=== PATIENT | female | born 1970 | race African-American/Black ===

== ENCOUNTER → 2017-06-08 | Outpatient (CLI) | payer OTHER ==
[~2017-06-08] MED LIST: AVONEX30 MCG/0.1 IM; BACLOFEN 10MG T10 MG PO; LEVAQUIN 500 M500 M2 PO; LEXAPRO20 MG PO; LISINOPRIL10 MG PO
== END ==
LOC: RAD 15:12
DX: R05 Cough (principal); J98.6 Disorders of diaphragm

== ENCOUNTER → 2018-02-17 | Outpatient (CLI) | payer OTHER | LOC: ULTRA 15:42 | DX: N83.202 Unspecified ovarian cyst, left side (principal); N83.201 Unspecified ovarian cyst, right side ==

== ENCOUNTER → 2018-05-25 | Outpatient (CLI) | payer OTHER | LOC: ULTRA 13:57 | DX: N83.201 Unspecified ovarian cyst, right side (principal); N83.202 Unspecified ovarian cyst, left side; D25.9 Leiomyoma of uterus, unspecified; N94.6 Dysmenorrhea, unspecified; N95.1 Menopausal and female climacteric states; N97.0 Female infertility associated with anovulation ==

== ENCOUNTER 2019-03-02 15:24 | Inpatient (IN) | payer OTHER ==
[~2019-03-02] VITALS: Ht 167.6 cm; Wt 107.5 kg
[2019-03-02 18:20] VITALS: BP 136/91
[2019-03-02 18:58] LABS: HEMATOCRIT 40.6 % (37.0-47.0); MCH 27.8 pg (26.0-34.0); MCV 86.8 fL (80.0-100.0); RBC 4.68 mil/uL (4.20-5.00); RDW 14.1 % (10.5-14.5); WBC 6.6 thou/uL (4.0-11.0)
[2019-03-02] MEDS ORDERED: DESYREL150 MG PO (19:00)
[2019-03-02] MEDS ORDERED: WELLBUTRIN SR150 M1 PO (19:01)
[2019-03-02] MEDS ORDERED: BRINTELLIX10 MG PO (19:01)
[2019-03-02] MEDS ORDERED: TOPAMAX100 MG PO (19:02)
[2019-03-02] MEDS ORDERED: ZYRTEC10 M4 PO (19:02)
[2019-03-02 19:05] LABS: CALCIUM 9.5 mg/dL (8.5-10.1); POTASSIUM 3.4 mmol/L (3.5-5.1)
[2019-03-02 19:11] LABS: ALBUMIN 3.8 g/dL (3.4-5.0); TOTAL BILIRUBIN 0.4 mg/dL (<0.1-1.0); TOTAL PROTEIN 7.6 g/dL (6.4-8.2)
[2019-03-02 19:33] LABS: URINE BILIRUBIN NEGATIVE (Negative); URINE BLOOD NEGATIVE (Negative); URINE CLARITY CLEAR; URINE COLOR YELLOW; URINE GLUCOSE-RANDOM* NEGATIVE (Negative); URINE KETONES NEGATIVE (Negative); URINE LEUKOCYTES NEGATIVE (Negative); URINE NITRITE NEGATIVE (Negative); URINE PROTEIN (DIPSTICK) NEGATIVE (Negative); URINE SPECIFIC GRAVITY >= 1.030 (1.005-1.035); URINE UROBILINOGEN 0.2 E.U./dl (0.2-1.0)
--- NOTE | 2019-03-02 22:06 | NUR ---
PATIENT WAS A NEW ADMISSION TO THE UNIT APPROXIMATELY AT 1800. SHE ARRIVED BY HERSELF AND WAS A DIRECT ADMIT. PATIENT IS ALERT AND ORIENTED AND ABLE TO FULLY PARTICIPATE IN ADMISSION. DAY SHIFT NURSE WAS ABLE TO GET IV FOR PATIENT AND GET HER COMFORTABLE . NURSE TO COMPLETE ADMISSION AND INITIATE PLAN OF CARE.
[2019-03-02 23:36] VITALS: BP 131/82
--- NOTE | 2019-03-03 02:40 | NUR ---
ASSUMED PATIENT CARE AT 1845. VITAL SIGNS STABLE WITH PATIENT HAVING NO COMPLAINTS OF NAUSEA. PATIENT DID COMPLAIN OF LOWER LEG PAIN WHICH WAS TREATED EFFECTIVELY THROUGH NON PHARMACOLOGICAL INTERVENTIONS. FULLY ORIENTED, PATIENT WAS ABLE TO CALL FOR NEED APPROPRIATELY AND PARTICIPATE IN CARE. UP MULTIPLE TIMES WITH ASSISTANCE TO BEDSIDE COMMODE INCIDENT FREE, PATIENT IS CONSIDERED A HIGH FALL RISK. CONTINUE PLAN OF CARE.
[2019-03-03 03:20] VITALS: BP 125/75
[2019-03-03 07:32] VITALS: BP 147/54
[2019-03-03 09:57] LABS: TSH 2.561 uIU/mL (0.358-3.740)
[2019-03-03 15:47] VITALS: BP 155/88
--- NOTE | 2019-03-03 18:15 | NUR ---
Assumed patient care at 0700. a/o x4. very pleasant. BLE weakness. assisted to bathroom or bsc. denies pain. slowly towards poc goals.
[2019-03-03 19:26] VITALS: BP 142/90
--- NOTE | 2019-03-04 02:03 | NUR ---
PT LYING IN BED. VOIDING PER BEDSIDE COMMODE. DENIES NEED FOR PAIN MEDICATION. RESTING COMFORTABLY. NO NEEDS VOICED. CALL LIGHT WITHIN REACH. WILL CONTINUE TO PROVIDE FREQUENT OBSERVATION.
[2019-03-04 04:15] VITALS: BP 125/66
[2019-03-04 08:05] VITALS: BP 140/83
[2019-03-04] MEDS ORDERED: BUPROPION XL300 MG PO (08:56)
[2019-03-04 15:13] VITALS: BP 126/78
[2019-03-04 19:54] VITALS: BP 149/81
--- NOTE | 2019-03-05 05:17 | NUR ---
PATIENT ALERT AND ORIENTED X4. UP TO BATHROOM WITH ASSIST. DENIES PAIN. ACCUCHECK WAS 115, RECIEVED 4 UNITS OF LISPRO INSULIN. SLEPT MOST OF NIGHT.
[2019-03-05 07:28] VITALS: BP 153/92
--- NOTE | 2019-03-05 16:06 | NUR ---
PT ADMITTED RLEATED TO M/S EXCACERBATION. CM REVIEWED CHART AND SPOKE WITH CARE TEAM. CM MET WITH PT AND SPOUSE AT BEDSIDE THIS DAY. PT IS A&O X4. CM ROLE INTRODUCED. PT INDICATED THAT SHE LIVES IN A HOUSE WITH HER SPOUSE WITH NO STEPS TO ENTER THROUGH THE GARAGE AND 14 STEPS THAT SHE NAVIGATES INSIDE. PT INDICATED SHE HAD USED A CANE TO ASSIST WITH MOBILITY IN THE PAST. PT INDICATED THAT SHE HAD DONE OP THEREAPY HERE AT [facility] IN THE PAST BUT NO HH OR POST ACUTE CARE STAYS. 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 PT INDICATED SHE PLANS TO RETURN HOME ONCE MEDICALLY STABLE. CM TO FOLLOW INDICATED WITH DC PLANNING.
[2019-03-05 20:00] VITALS: BP 146/77
[2019-03-06 07:10] VITALS: BP 153/93
--- NOTE | 2019-03-06 08:11 | NUR ---
Assumed pt care at 1900, A/OX4. Up ad leigh in room with RW,cleared by PT and should be up with SBA if going down the hallways. Denies pain on assessment. Pt had an outpatient kidney US requested staff to inform them she was inpatient and did so @ 2214. Encouraged to vice needs as needed.
[2019-03-06 15:00] VITALS: BP 153/83
[2019-03-06 19:10] VITALS: BP 142/83
--- NOTE | 2019-03-06 19:29 | NUR ---
ASSUMED CARE OF PATIENT AT 0715, PATIENT ALERT AND ORIENTED X 4. PATIENT UP AD ITZ IN HER ROOM, PT WORKED WITH THE PATIENT TODAY AND AMBULATED IN HALLWAYS. PATIENT HAS LEFT AC IV IN PLACE, RECEIVED SOLU-MEDROL IV THIS AFTERNOON. BLOOD SUGAR MONITORING ORDERED, DUE TO IV STEROIDS, BS 170 AT 1727, PATIENT REFUSED INSULIN DOSE. NO C/O PAIN THIS SHIFT. US OF KIDNEYS DONE THIS AM. WILL CONTINUE TO MONITOR. POSSIBLE D/C TOMORROW.
--- NOTE | 2019-03-07 04:42 | NUR ---
Assumed pt care at 1900. A/OX4,very pleasant. Denies pain on assessment. Up with a RW to the bathroom without any problems, encouraged to call for assistance as needed. Resting quietly at this time with no distress noted will continue pt.
[2019-03-07 08:14] VITALS: BP 169/109
[2019-03-07] MEDS ORDERED: GABAPENTIN 100100 MG PO (10:52)
[2019-03-07] MEDS ORDERED: NEURONTIN 300300 M1 PO (10:53)
[2019-03-07] MEDS ORDERED: RAYOS5 MG PO (10:54)
[2019-03-07 15:30] VITALS: BP 169/109
--- NOTE | 2019-03-07 15:54 | NUR ---
ASSUMED CARE OF PATIENT AT 0715, PATIENT ALERT AND ORIENTED X 4. PATIENT UP AD ITZ WITH WALKER IN ROOM, SBA IN HALLWAYS. PATIENT C/O PAIN WITH ABDOMEN, NAPROXYN GIVEN WITH GOOD RELIEF. PATIENT HAS LEFT AC IV IN PLACE. PATIENT RECEIVED SOLU MEDROL IV PRIOR TO DISCHARGE. LEFT AC IV REMOVED PRIOR TO DISCHARGE. THIS RN WENT OVER ALL DISCHARGE PAPERWORK WITH THE PATIENT AND NO SCRIPTS GIVEN PER DR BASS. AT BEDSIDE TO TRANSPORT THE PATIENT HOME.
== END 2019-03-07 16:55 | disposition home or self-care (01) | DRG 60 ==
LOC: TBA 15:24 → 4S 18:24 → 3W 18:24 → 4S 03-04 19:00 → ENTRNSPT 03-07 15:56 → 4S 03-07 16:55
PROVIDERS: Hospitalist; ADMIT Family Medicine
DX: G35 Multiple sclerosis (principal); I10 Essential (primary) hypertension; F32.9 Major depressive disorder, single episode, unspecified; R53.81 Other malaise; Z88.2 Allergy status to sulfonamides; Z79.899 Other long term (current) drug therapy; Z87.891 Personal history of nicotine dependence
CPT/HCPCS: 10102; 10779

== ENCOUNTER → 2019-05-02 | Outpatient (CLI) | payer OTHER ==
[~2019-05-02] VITALS: Ht 167.6 cm; Wt 99.8 kg
[~2019-05-02] MED LIST changes: +AMITIZA 24 MCG24 MCG PO; +BRINTELLIX10 MG PO; +BUPROPION XL300 MG PO; +DESYREL150 MG PO; +DETROL LA4 MG PO; +GABAPENTIN 100100 MG PO; +NEURONTIN 300300 M1 PO; +PRILOSEC OTC20 MG PO; +RAYOS5 MG PO; +TOPAMAX100 MG PO; +VITAMIN D400 UNIT PO; +WELLBUTRIN SR150 M1 PO; +ZYRTEC10 M4 PO
--- NOTE | 2019-05-03 16:06 | PATH ---
[facility] [place] [address] PATHOLOGY RPT PROCEDURE Name: MOHIT CARTER Room #: REG SUE Rachelle#: [id number] Admission: 05/02/19 Date of : 68 Discharge: Report #: [id number] Path Case #: [id number] LCA Accession Number: [id number] . 01 Material submitted: . PART A: duodenum - BIOPSY OF DUODENUM R/O SPRUE PART B: stomach - BIOPSY OF GASTRITIS R/O H. PYLORI PART C: colon - POLYP AT SIGMOID. Modifiers: sigmoid . 01 Clinical history: . Nausea, constipation . 02 Diagnosis: A. Small bowel mucosa, duodenum R/O sprue, endoscopic biopsy: - No diagnostic abnormalities present. - Negative for villous blunting or increase in intraepithelial lymphocytes. . B. Gastric mucosa, gastritis R/O H. pylori, endoscopic biopsy: - Mild reactive gastropathy. - Negative for intestinal metaplasia or atrophy. - Negative for Helicobacter pylori (properly controlled immunohistochemical stain performed). . C. Polyp, at sigmoid, endoscopic biopsy: - Hyperplastic polyp. - Negative for dysplasia or malignancy. (IUV:arnoldo; 05/03/2019) QMS 05/03/2019 1445 Local . 02 Electronically signed: . Brook Oreilly MD, Pathologist NPI- [id number] . 01 Gross description: . A. Received in formalin labeled "Mohit Carter, BX duodenal, rule out sprue," are 5 segments of prince soft tissue measuring 1.1 x 0.6 x 0.3 cm in aggregate dimensions and ranging from 0.2 to 0.6 cm in maximum dimension. The specimen is submitted entirely in cassette A1. . B. Received in formalin labeled "Mohit Carter, BX of gastritis, rule out H. pylori," are 4 segments of prince soft tissue measuring 0.9 x 0.8 x 0.3 cm in aggregate dimensions and ranging from 0.3 to 0.5 cm in maximum dimension. The specimen is submitted entirely in cassette B1. . C. Received in formalin labeled "Mohit Carter, polyp at sigmoid," is a single segment of prince soft tissue measuring 0.3 cm in maximum dimension. [facility] [address] [place] [address] PATHOLOGY RPT PROCEDURE Name: MOHIT CARTER Room #: REG CLI Rachelle#: [id number] Admission: 05/02/19 Date of : 68 Discharge: Report #: [id number] Path Case #: [id number] The specimen is entirely submitted in cassette C1. (TSD; 05/02/2019) TOB/TOB 05/02/2019 1731 Local . 02 Pathologist provided ICD-10: K31.9, K63.5, R11.0, K59.00 . 02 CPT . 528982, 496967, 978801, L15004 Specimen Comment: A courtesy copy of this report has been sent to [phone] Specimen Comment: [id number] Specimen Comment: Report sent to / DR BASS Performed at: 01 [facility] [address], [place] [id number] MD Tristian Shrestha MD Phone: [phone] Performed at: [address] [facility] [id number] MD Brook Oreilly MD Phone: [phone]
--- NOTE | 2019-05-09 08:07 | P ---
[facility] [place] [address] [place] [address] PROCEDURE REPORT Name: MOHIT MOURA Room #: [facility] [id number] Admission: 05/02/19 Attend Phys: Miles Wolf Discharge: Date of : 68 Report #: [id number] THIS REPORT FOR: //name// CC: Miles Wilson MD DATE OF SERVICE: 05/02/2019 PROCEDURE PERFORMED: Colonoscopy with biopsies. HISTORY OF PRESENT ILLNESS: The patient is a 48-year-old female with a history of nausea for the last approximately 6 weeks. Upper endoscopy was just performed, which was normal. Biopsies were obtained to rule out H. pylori and celiac sprue. The patient also with a history of chronic constipation, intermittent right upper quadrant abdominal pain that resolves after a bowel movement. She is currently taking Amitiza 24 mcg b.i.d., recently started the higher dose; in the past, was on Linzess at a lower dose. MiraLax was helpful in the past. She denies any blood in her stools. No family history of colon cancer. DESCRIPTION OF PROCEDURE: The risks and benefits of the procedure were explained to the patient, those risks including but not limited to bleeding, perforation, and the risk of sedation. She understood these risks and gave informed consent. Sedation was given using propofol per anesthesia. Next, a digital rectal exam was initially performed, which was normal. Next, using a standard Olympus colonoscope, the scope was placed in the patient's anus and advanced under direct vision to the cecum. The overall prep was good. The cecum and ileocecal valve were normal in appearance. Ascending, transverse and descending colon were normal. A single 3 mm sessile polyp was noted in the sigmoid colon. This was removed with cold forceps, otherwise normal. The rectal mucosa was normal. No abnormalities were noted on retroflexion. The scope was then withdrawn and the procedure terminated. The patient tolerated the procedure well. IMPRESSION: 1. Small sigmoid colon polyp. 2. Otherwise, normal colonoscopy. RECOMMENDATIONS: 1. Await biopsy results. 2. If polyp is hyperplastic, repeat in 10 years; if adenomatous polyp, repeat in 5 years. 3. We discussed potentially trying a higher dose of Linzess and continuing MiraLax. [address] [address] PROCEDURE REPORT Name: MOHIT MOURA Pedro Room #: REG SUE Bush#: [id number] Admission: 05/02/19 Attend Phys: Miles Wolf Discharge: Date of : 68 Report #: [id number] Thank you for allowing me to participate in her care. <ELECTRONICALLY SIGNED> By: Miles Garcia MD 05/09/19 0807 1118 0000 Miles Garcia MD /nt
--- NOTE | 2019-05-09 08:07 | P ---
[facility] [place] [address] [place] [address] PROCEDURE REPORT Name: MOHIT MOURA Room #: REG SUE Rachelle#: [id number] Admission: 05/02/19 Attend Phys: Miles Wolf Discharge: Date of : 68 Report #: [id number] THIS REPORT FOR: //name// CC: Miles Wilson MD DATE OF SERVICE: 05/02/2019 PROCEDURE PERFORMED: Upper endoscopy with biopsies. HISTORY OF PRESENT ILLNESS: The patient is a 48-year-old female with approximately 2-month history of nausea. Denies any emesis. No previous history of endoscopy. Denies any dysphagia or odynophagia. She does report some mild benefit being on PPI therapy, also has been using Zofran b.i.d. with benefit. She also complains of right upper quadrant abdominal pain as well as chronic constipation. This right upper quadrant pain resolved with a bowel movement. She has recently been on Amitiza 8 mcg bumped up to 24 mcg b.i.d. recently without much improvement. Plan is for EGD and colonoscopy today. DESCRIPTION OF PROCEDURE: The risks and benefits of the procedure were explained to the patient. Those risks including but not limited to bleeding, perforation and the risk of sedation. She understood these risks and gave informed consent. Sedation was given using propofol per Anesthesia. Next, using a standard upper endoscope, the scope was placed in the patient's mouth and advanced under direct vision through the esophagus, stomach and into the second portion of the duodenum. The esophagus was normal throughout. The GE junction was normal. No evidence of esophagitis. Overall, the gastric mucosa was normal. Because of her history of nausea, biopsies were obtained to rule out H. pylori. The pylorus was normal and patent. The duodenal bulb, first and second portion were all normal. Biopsies were also obtained to rule out the possibility of celiac sprue. The scope was then withdrawn and the procedure terminated. The patient tolerated the procedure well. IMPRESSION: Normal upper endoscopy. RECOMMENDATIONS: 1. Await biopsy results. 2. Continue PPI therapy and Zofran p.r.n. 3. We will proceed with colonoscopy next today. [facility] [address] [place] [address] PROCEDURE REPORT Name: MOHIT MOURA Room #: REG [facility].#: [id number] Admission: 05/02/19 Attend Phys: Miles Wolf Discharge: Date of : 68 Report #: [id number] Thank you for allowing me to participate in her care. <ELECTRONICALLY SIGNED> By: Miles Garcia MD 05/09/19 0807 1051 [id number] Miles Garcia MD /nt
== END | disposition home or self-care (01) ==
LOC: GI 08:34
DX: K63.5 Polyp of colon (principal); K31.9 Disease of stomach and duodenum, unspecified; K59.00 Constipation, unspecified; R10.11 Right upper quadrant pain; I10 Essential (primary) hypertension; K21.9 Gastro-esophageal reflux disease without esophagitis; F32.9 Major depressive disorder, single episode, unspecified; F41.9 Anxiety disorder, unspecified; G35 Multiple sclerosis; Z98.890 Other specified postprocedural states; Z87.891 Personal history of nicotine dependence; Z79.899 Other long term (current) drug therapy
CPT/HCPCS: 62110; 62900

== ENCOUNTER → 2019-10-31 | Outpatient (CLI) | payer OTHER | LOC: LAB 10:14 | PROVIDERS: ATTEND Urology | DX: N30.20 Other chronic cystitis without hematuria (principal) ==

== ENCOUNTER → 2020-04-14 | Outpatient (CLI) | payer OTHER | LOC: MRI 09:31 | PROVIDERS: ATTEND Nuclear Medicine Nuclear Cardiology | DX: G35 Multiple sclerosis (principal); M48.02 Spinal stenosis, cervical region; M25.78 Osteophyte, vertebrae ==

== ENCOUNTER → 2020-07-09 | Outpatient (CLI) | payer OTHER | LOC: ULTRA 12:53 | PROVIDERS: ATTEND Obstetrics & Gynecology | DX: D25.1 Intramural leiomyoma of uterus (principal); N28.1 Cyst of kidney, acquired; N93.8 Other specified abnormal uterine and vaginal bleeding ==

== ENCOUNTER → 2021-02-13 | Outpatient (CLI) | payer OTHER | LOC: RAD 15:27 | PROVIDERS: ATTEND Family Medicine | DX: Z12.31 Encounter for screening mammogram for malignant neoplasm of breast (principal) ==

== ENCOUNTER → 2021-02-25 | Outpatient (CLI) | payer OTHER ==
[~2021-02-25] MED LIST changes: +CEFDINIR300 MG PO; +CRANBERRY PO; +GEMTESA75 MG PO; +IBU600 MG PO; +MIRALAX119 GM PO; +NEURONTIN300 MG PO; +NITROFURANTOIN50 M2 PO; +TIZANIDINE HCL4 M2 PO; +VITAMIN B-12500 MCG PO
== END ==
LOC: BC 09:06
PROVIDERS: ATTEND Family Medicine
DX: R92.1 Mammographic calcification found on diagnostic imaging of breast (principal)

== ENCOUNTER 2021-03-02 10:49 | Inpatient (IN) | payer OTHER ==
[~2021-03-02] VITALS: Ht 167.6 cm; Wt 101.3 kg
--- NOTE | ~2021-03-02 | HC ---
[facility] [place] [address] [address] CONSULTATION Name: MOHIT MOURA Room #: 460-P ADM IN M.R.#: [id number] Admission: 03/02/21 Attend Phys: Aldair Wilson MD Discharge: Date of : 68 Report #: [id number] THIS REPORT FOR: cc: Aldair Wilson MD, Neal A. MD Khosla,Geoffrey Barrera MD ~ DATE OF SERVICE: 03/03/2021 HISTORY OF PRESENT ILLNESS: A 50-year-old female patient who was seen by me for MS. This patient has significant records in the computer, which dates back to 2011 when she was seen by Dr. Myles, who was a neurologist here. She was having some tingling and numbness sensation and was found to have a lesion both in the brain and the spine. The spinal tap confirmed that she had 4 oligoclonal band, pretty much confirming the diagnosis of MS. Presently, she sees Dr. Quintanilla, a subspecialist in MS at . She is not on her insurance. She pays for her visit, but she cannot pay for the hospitalization. She sometimes gets admitted here and they follow the instructions from Dr. Quintanilla. It looks like that what it was done in 2019. She started having ophthalmology symptoms. She never had ophthalmology symptoms before. On examination, it looks pretty typical internuclear ophthalmoplegia. She also developed ataxia and what looks like inability to ambulate. As I understand from her, she was started on 1000 mg of steroid and she has received 2 dosages of that and she feels significantly better. REVIEW OF SYSTEMS: Positive for some hypertension. She gets vitamin D checked pretty frequently and as I understand the last time Dr. Quintanilla checked it and it was unremarkable. There is some history of depression and tonsillectomy, but rest of the history is mostly unremarkable. PAST MEDICAL HISTORY: Positive for MS. SOCIAL HISTORY: She drinks alcohol occasionally. She says she works in [employer]. PHYSICAL EXAMINATION: NEUROLOGIC: She is alert, responsive, able to follow simple and complex commands. Her mentation appears intact. Her speech looks intact. Cranial nerve examination is mostly positive for what looks like internuclear ophthalmoplegia. She is to some extent weak in all 4 extremities. It is more so in the lower extremities than upper extremities. It is more so on the left lower extremity than the right lower extremity, but she says she has improved after steroids. She is also ataxic there. On the right side, she did not have a position signs. On the left side, she did. Reflexes does appear to be somewhat hyper, but I cannot tell about the plantar. I could not look at the fundus. [facility] [address] [place] [address] CONSULTATION Name: MOHIT MOURA Room #: 460-P ADM IN M.R.#: [id number] Admission: 03/02/21 Attend Phys: Aldair Wilson MD Discharge: Date of : 68 Report #: [id number] CARDIORESPIRATORY: Examination appear unremarkable. LABORATORY DATA: Last white count was 6.7. UA was normal. She did not have any recent imaging study. IMPRESSION AND PLAN: Finding is consistent with relapse of multiple sclerosis, probably in the posterior fossa and the brainstem, but it looks like a pretty aggressive multiple sclerosis. She is on some study protocol at [facility]. She does not know what is restricted and what is not restricted. She already got 2 dosages of Solu-Medrol and I think since it has already started she can finish the course, which can last somewhere about 5-7 days depending upon her response. I told her that we should do an MRI of the brain, cervical and thoracic spine with and without contrast. All 3 of them can be done with 1 dosage of contrast. She will probably need some rehabilitation. She wants me to check with Dr. Quintanilla to make sure that it is okay to do an MRI and it is not violation of the study protocol she is on, because she is getting medication from them at the moment and is not a double-blind study anymore. I told her that I will try to contact her in the morning, but if she does not reply, then we should go ahead and do the imaging studies. She appeared to be okay and I will try to contact Dr. Quintanilla in the morning and then I will also give a call to Dr. Wilson. Thank you very much for this referral and if you have any questions, please feel free to contact me. By: [phone] 01 Geoffrey Evans MD /nt
--- NOTE | ~2021-03-02 | HC ---
[facility] [place] [address] [place] [address] CONSULTATION Name: MOHIT MOURA Room #: 460-P ADM IN M.R.#: [id number] Admission: 03/02/21 Attend Phys: Aldair Wilson MD Discharge: Date of : 68 Report #: [id number] THIS REPORT FOR: cc: Aldair Wislon MD, Neal A. MD Smithson, David G. MD ~ DATE OF SERVICE: 03/04/2021 HISTORY OF PRESENT ILLNESS: The patient is a 50-year-old female admitted with multiple sclerosis flare. She was noted to have strabismus left eye with double vision and significant increased weakness. She was seen by neurology and noted to have internuclear ophthalmoplegia with ataxia, problems ambulating and was diagnosed with a relapse of her multiple sclerosis. She is on IV steroids. We are seeing her in rehabilitation medicine consultation. PAST MEDICAL HISTORY: Includes the MS. She also has a history of hypertension, depression, controlled GERD. MEDICATIONS: Please see the full medication listing. HABITS: Former tobacco smoker, one-half pack per day for 20 years, quit greater than a year ago. Alcohol only on special occasions. ALLERGIES: SULFA. SOCIAL HISTORY: She lives with her in a house, no stairs. She has a 4-wheeled walker, cane, wheelchair. 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 Her works. They have 5 children, 4 are out of town, 1 is in town. There is a mother that could assist and friends as well. REVIEW OF SYSTEMS: Obvious issues with her vision and complaints of weakness. No complaints of chest pain, shortness of breath or abdominal discomfort. PHYSICAL EXAMINATION: GENERAL: A 50-year-old pleasant, overweight female in no obvious distress. She has the eye patch on her left eye. VITAL SIGNS: Temperature 97.4, pulse 58, respirations 16, blood pressure 134/82. HEENT: Upon removing the eye patch, she has obvious marked abduction of the left eye. With EOMs, she is able to adduct that left eye while she abducts the right eye and does not have double vision when looking to the right with some consensual gaze. She does have double vision; however, at midline and especially in the left visual field. Facies appeared symmetric. NEUROLOGIC: She is alert, appears to be a reasonable historian. Follows [facility] [address] [place] [address] CONSULTATION Name: MOHIT MOURA Room #: 460-P [facility] IN M.R.#: [id number] Admission: 03/02/21 Attend Phys: Aldair Wilson MD Discharge: Date of : 68 Report #: [id number] commands. EXTREMITIES: Functional range of motion of both upper extremities, strength is grade 3+/5. She does reasonably well with prkeyu-fl-aojz with some difficulty with the visual aspect of it. Rapid alternating movements were reasonably good. In her lower extremities, she has definite increased tone with a grade III, DTRs at the knees. There was no clonus at the ankles. Strength is probably a grade 3- to 3/5 proximally, more of a grade 3+ distally. ASSESSMENT: A 50-year-old female with the following problem list: 1. Multiple sclerosis flare. 2. Double vision with internuclear ophthalmoplegia. 3. Significant functional mobility and ADL deficits. 4. Prior medical history as noted above. PLAN: Agree with PT and OT orders as written. We will need to see how she does in her therapy evaluations. We will assess regarding her as a potential acute in-hospital inpatient rehabilitation candidate. We will be glad to follow along with you regarding her rehab therapy needs. By: 1304 Evgeny Bae MD /nt
[~2021-03-02 10:49] MED LIST changes: -CEFDINIR300 MG PO; -CRANBERRY PO; -GEMTESA75 MG PO; -IBU600 MG PO; -MIRALAX119 GM PO; -NEURONTIN300 MG PO; -NITROFURANTOIN50 M2 PO; -TIZANIDINE HCL4 M2 PO; -VITAMIN B-12500 MCG PO
[2021-03-02 10:56] VITALS: BP 161/107
[2021-03-02 12:12] LABS: ABSOLUTE NEUTROPHILS 5.4 thou/uL (1.4-8.2); BASOPHILS 0.5 % (0.0-2.0); EOSINOPHILS 0.8 % (0.0-3.0); HEMATOCRIT 41.7 % (37.0-47.0); HEMOGLOBIN 13.4 gm/dL (12.0-15.0); LYMPHOCYTES 13.1 % (24.0-44.0); MCH 27.7 pg (26.0-34.0); MCHC 32.1 g/dL (28.0-37.0); MCV 86.4 fL (80.0-100.0); PLATELET COUNT 275 thou/uL (150-400); POLYS 80.6 % (36.0-66.0); RBC 4.83 mil/uL (4.20-5.00); RDW 14.3 % (10.5-14.5); WBC 6.7 thou/uL (4.0-11.0)
[2021-03-02 12:12] LABS: URINE BILIRUBIN NEGATIVE (Negative); URINE BLOOD NEGATIVE (Negative); URINE CLARITY CLEAR; URINE COLOR YELLOW; URINE GLUCOSE-RANDOM* NEGATIVE (Negative); URINE KETONES 1+ (Negative); URINE LEUKOCYTES-REFLEX TRACE (Negative); URINE NITRITE-REFLEX NEGATIVE (Negative); URINE PROTEIN (DIPSTICK) NEGATIVE (Negative); URINE UROBILINOGEN 0.2 E.U./dl (0.2-1.0)
[2021-03-02 12:19] LABS: ANION GAP 12 mmol/L (7-16); BUN 11 mg/dL (7-18); CALCIUM 9.4 mg/dL (8.5-10.1); CHLORIDE 106 mmol/L (98-107); CO2 26 mmol/L (21-32); CREATININE 0.9 mg/dL (0.6-1.0); GLUCOSE 88 mg/dL (74-106); SODIUM 144 mmol/L (136-145)
[2021-03-02 12:32] LABS: ALBUMIN 3.5 g/dL (3.4-5.0); SGOT 14 U/L (15-37); SGPT 20 U/L (30-65); TOTAL BILIRUBIN 0.8 mg/dL (0.2-1.0); TOTAL PROTEIN 7.1 g/dL (6.4-8.2)
--- NOTE | 2021-03-02 13:37 | EKG ---
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
[2021-03-02 15:20] VITALS: BP 159/92
--- NOTE | 2021-03-02 15:40 | NUR ---
50 year old female arrived to the ED on 03-02-21 by spouse and private vehicle with what patient describes as an exacerbation of her MS. Patient reports strabismus of the left eye, nausea and increased weakness. Patient is a current patient of Dr. 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 Currently living at home with spouse Julius Carter at [phone]. Per ED assessment the patient is A&O x4 and can make all needs known. As Medical assessment continues CM will await therapy orders to be placed to assist for discharge planning.
[2021-03-02 19:32] VITALS: BP 159/92
[2021-03-02 20:31] VITALS: BP 129/86
[2021-03-02 21:00] VITALS: BP 144/93
[2021-03-02] MEDS ORDERED: TIZANIDINE HCL4 M2 PO (21:37)
[2021-03-02] MEDS ORDERED: GEMTESA75 MG PO (21:38)
[2021-03-02] MEDS ORDERED: NITROFURANTOIN50 M2 PO (21:40)
[2021-03-02] MEDS ORDERED: NEURONTIN300 MG PO (21:41)
[2021-03-02] MEDS ORDERED: MIRALAX119 GM PO (21:42)
[2021-03-02] MEDS ORDERED: CRANBERRY PO (21:44)
[2021-03-02] MEDS ORDERED: IBU600 MG PO (23:30)
--- NOTE | 2021-03-02 23:43 | NUR ---
Ptn admitted from ED at 2200 with MS exacerbation. A/OX4,pleasant.VSS. Up with SBA,RW/GB. Pt reports several falls recently at home,fall education reinforced,agrees to call for help as needed,precautions initiated. Pt does self straight cath herself at home;brought her own supplies from home. notified about home meds;HS meds restarted will look into others in am. Reports numbness/tingling to BLE chronic but on BUE new but not right now. Resting w/o any distress right now,will continue to monitor pt.
[2021-03-03 07:40] VITALS: BP 141/87
[2021-03-03 12:30] VITALS: BP 145/82
--- NOTE | 2021-03-03 12:59 | NUR ---
ASSUMED PT CARE THIS AM. PT A&OX4, ABLE TO MAKE NEEDS KNOWN. PATIENT REPORTING NAUSEA AND A HEADACHE, MEDICATED PER EMAR WITH DECREASE IN PAIN AND NAUSEA NOTED. PATIENT REPORTS CHRONIC TINGLING IN BILATERAL FEET, AND NEW TINGLING TO BILATERAL HANDS. PATIENT SELF CATHETERIZES HERSELF. PATIENT IS ON ROOM AIR. IV REMAINS PATENT, SALINE LOCKED. MEDICATIONS TAKEN WITHOUT ISSUE. FALL PRECAUTIONS ARE IN PLACE, CLAL LIGHT WITHIN REACH. PATIENT AMBULATES WITH STANDBY ASSIST AND HER WALKER.
[2021-03-03 15:00] VITALS: BP 125/82
--- NOTE | 2021-03-03 15:07 | NUR ---
PT ADMITTED RELATED TO MS EXARCABATION. CM REVIEWED CHART AND SPOKE WITH CARE TEAM. CM MET WITH PT AT [facility] THIS DAY. PT APPEARED TO BE A&O X4. CM ROLE INTRODUCED. PT INDICATED SHE LIVES IN A HOUSE WITH HER SPOUSE WITH NO STEPS TO ENTER AND NO STEPS INSIDE. PT INDICATED SHE HAS A 4WW, WC, CANES, SB, GRAB BARS FOR HOME USE. 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 PT INDICATED SHE HAD DONE OP PT HERE AT [facility] IN THE PAST. PT INDICATED SHE PLANS TO RETURN HOME ONCE MEDICALLY STABLE. CM FOLLOWING REGARDING DC PLANNING.
[2021-03-03 19:58] VITALS: BP 153/81
--- NOTE | 2021-03-04 04:01 | NUR ---
Assumed pt care at 1900. A/OX4,pleasant. VSS. Up with SBA/RW to BR. BS hypoactive requesting for bowel aids,will notify in am. Self straight caths self. C/o a headache r/t left eye strabismus,medicated with Tylenol with relief reported. Resting quietly w/o distress noted. Fall precautions in place,will continue to monitor pt.
[2021-03-04 07:00] VITALS: BP 134/82
--- NOTE | 2021-03-04 14:24 | NUR ---
ASSUMED PT CARE THIS AM. PT A&OX4, ABLE TO MAKE NEEDS KNOWN. PATIENT REPORTING NO PAIN. PATIENT STILL HAVING TINGLING TO BILATERAL FINGERS. EYE PATCH TO LEFT EYE. PATIENT ON ROOM AIR. IV REMAINS PATENT, MEDICATION INFUSED WITHOUT ISSUE. PATIENT IS A STANDBY ASSIST WITH A WALKER, REMAINS CONTINENT. FALL PRECAUTIONS ARE IN PLACE, CALL LIGHT WITHIN REACH.
--- NOTE | 2021-03-04 15:24 | NUR ---
PT AND OT ORDERED AND ARE TO EVAL. 5N AND NEURO CONSULTED. CM FOLLOWING REGARDING DC PLANNING.
[2021-03-04 16:30] VITALS: BP 141/82
[2021-03-04 19:07] LABS: URINE BILIRUBIN NEGATIVE (Negative); URINE BLOOD NEGATIVE (Negative); URINE CLARITY CLOUDY; URINE COLOR YELLOW; URINE GLUCOSE-RANDOM* NEGATIVE (Negative); URINE KETONES NEGATIVE (Negative); URINE LEUKOCYTES 1+ (Negative); URINE NITRITE NEGATIVE (Negative); URINE PROTEIN (DIPSTICK) NEGATIVE (Negative); URINE SPECIFIC GRAVITY 1.025 (1.005-1.035); URINE UROBILINOGEN 0.2 E.U./dl (0.2-1.0)
[2021-03-04 19:16] LABS: CASTS None Seen /LPF (None Seen); SQUAMOUS 0-3 Few /LPF (0-3); URINE RBC 1-2 Rare /HPF (NONE SEEN); URINE WBC 6-15 Few /HPF (NONE SEEN)
[2021-03-04 19:17] LABS: CRYSTALS None Seen /LPF (None Seen)
[2021-03-04 19:32] VITALS: BP 139/89
--- NOTE | 2021-03-05 05:38 | NUR ---
PATIENT AOX4 MAKES NEEDS KNOWN. PATIENT AMBULATES WITH A WALKER WITH STEADY GAITS. PATIENT IS ABLE TO STRAIGHT CATH HERSELF. FALL PRECAUTION IN PLACE. PATIENT IN BED ASLEEP AT THIS TIME BREATHING REGULAR AND UNLABOURED.
[2021-03-05 07:26] VITALS: BP 154/93
--- NOTE | 2021-03-05 13:49 | NUR ---
[facility] INDICATED THAT THEY CAN ACCPET. CM NOTIFIED DR. BASS. CM MET WITH PT AT BEDSIDE THIS DAY. PT INDICATED THAT SHE WANTED TO GO TO [facility] ONCE MEDICALLY STABLE. PT TO HAVE 4 MRIS. PT HAVING TWO TODAY AND TWO TOMORROW DUE TO MRI SHCEDULING. IT IS ANTICIPATED THAT PT WILL BE MEDICALLY STABLE TO DC TO [facility] TOMORROW. CM FOLLOWING REGARDING DC PLANNING.
[2021-03-05 16:20] VITALS: BP 152/94
[2021-03-05 20:01] VITALS: BP 143/83
[2021-03-06] MEDS ORDERED: CEFDINIR300 MG PO (07:31)
[2021-03-06 07:40] VITALS: BP 158/98
--- NOTE | 2021-03-06 08:16 | NUR ---
Assumed pt care at 1900. A/OX4,VSS. Up with SBA/RW. C/o abd pain/cramping medicated per EMAR with relief reported,still has had no BM,wanted to hold off ordering her something else and wait for dc. Resting w/o any distress noted,looking forward to dc this afternoon.
[2021-03-06 08:50] VITALS: BP 158/98
[2021-03-06 09:15] LABS: HEMATOCRIT 44.1 % (37.0-47.0); HEMOGLOBIN 14.4 gm/dL (12.0-15.0); MCH 28.2 pg (26.0-34.0); MCHC 32.7 g/dL (28.0-37.0); MCV 86.3 fL (80.0-100.0); RBC 5.11 mil/uL (4.20-5.00); RDW 14.4 % (10.5-14.5); WBC 8.6 thou/uL (4.0-11.0)
[2021-03-06 09:28] LABS: ALBUMIN 3.5 g/dL (3.4-5.0); CALCIUM 9.1 mg/dL (8.5-10.1); CREATININE 0.9 mg/dL (0.6-1.0); POTASSIUM 3.8 mmol/L (3.5-5.1); TOTAL BILIRUBIN 0.6 mg/dL (0.2-1.0); TOTAL PROTEIN 7.4 g/dL (6.4-8.2)
--- NOTE | 2021-03-06 14:58 | NUR ---
CALLED REPORT TO PRAVEEN ON [facility].
--- NOTE | 2021-03-06 16:05 | NUR ---
CARE TEAM INDICATED THAT PT IS MEDICALLY STABLE TO DC TO [facility] THIS DAY. PT IS TO GOTO OP EYE DOCTOR APPOINTMENT AND THEN ADMIT TO [facility]. NURSE CALLED REPORT. NO OTHER CM INTERVENTION INDICATED. CASE CLOSED.
== END 2021-03-06 15:31 | DRG 59 ==
LOC: ER 10:49 → 4W 13:48 → EROBS 13:48 → 4W 20:50
PROVIDERS: Nurse Practitioner; Psychiatry & Neurology Neuromuscular Medicine; ADMIT Family Medicine; ATTEND Family Medicine
DX: G35 Multiple sclerosis (principal); N39.0 Urinary tract infection, site not specified; K59.00 Constipation, unspecified; Z88.2 Allergy status to sulfonamides; Z20.822 Contact with and (suspected) exposure to COVID-19; I10 Essential (primary) hypertension; K21.9 Gastro-esophageal reflux disease without esophagitis
CPT/HCPCS: 10040

== ENCOUNTER 2021-03-06 09:18 | Inpatient (IN) | payer OTHER ==
[~2021-03-06] VITALS: Ht 167.6 cm; Wt 101.2 kg
[~2021-03-06 09:18] MED LIST changes: +CEFDINIR300 MG PO; +CRANBERRY PO; +GEMTESA75 MG PO; +IBU600 MG PO; +MIRALAX119 GM PO; +NEURONTIN300 MG PO; +NITROFURANTOIN50 M2 PO; +TIZANIDINE HCL4 M2 PO
--- NOTE | 2021-03-06 17:24 | NUR ---
PT ARRIVED ON UNIT. PT SIG OTHER WENT TO GET HER DINNER. PT HAS EYE PATCH OVER RT EYE. PT SEEN OFF CAMPUS PRIOR TO COMING TO REHAB. PT HAS HER OWN WALKER WITH HER.
[2021-03-06 18:45] VITALS: BP 166/97
[2021-03-06 19:23] VITALS: BP 169/107
--- NOTE | 2021-03-07 00:21 | NUR ---
PT ASSESSMENT COMPLETED AND VSS. ADMIT COMPLETED. PT SIGNED CONSENTS. CONSULTS CALLED. MEDICATION FOR CONSTIPATION GIVEN. PT WAS EDUCATED ON CALLING WHEN SHE NEEDS TO GET UP/BED ALARM/CHAIR ALARM/AND GAIT BELT. PT UP TO THE BATHROOM WITH ASST/GAIT/WALKER. SLEEPING. WILL CONTINUE TO MONITOR FREQUENTLY.
[2021-03-07 00:46] VITALS: BP 130/70
[2021-03-07 05:28] LABS: HEMATOCRIT 40.6 % (37.0-47.0); HEMOGLOBIN 13.1 gm/dL (12.0-15.0); MCH 28.2 pg (26.0-34.0); MCHC 32.2 g/dL (28.0-37.0); MCV 87.4 fL (80.0-100.0); RBC 4.65 mil/uL (4.20-5.00); RDW 14.7 % (10.5-14.5); WBC 9.4 thou/uL (4.0-11.0)
[2021-03-07 05:49] LABS: CALCIUM 8.7 mg/dL (8.5-10.1); CREATININE 0.9 mg/dL (0.6-1.0); POTASSIUM 3.6 mmol/L (3.5-5.1)
[2021-03-07 07:53] VITALS: BP 164/97
--- NOTE | 2021-03-07 17:16 | NUR ---
PT ALERT AND ORIENTED TIMES FOUR. VSS. PT DENIES PAIN/SOA. PT TOLERATES MEDS AND MEALS. PT WORKED WELL WITH PT/OT TODAY. PT PROGRESSING TOWRADS POC GOALS.
[2021-03-07 19:55] VITALS: BP 173/90
--- NOTE | 2021-03-08 03:17 | NUR ---
PT TRANSFERRING TO BEDSIDE COMMODE WITH ASSIST AND IS TOLERATING FAIR. SCHEDULED MEDS PROVIDING PAIN RELIEF. RESTING COMFORTABLY. NO NEEDS VOICED. CALL LIGHT WITHIN REACH. FREQUENT OBSERVATION.
[2021-03-08 08:34] VITALS: BP 124/72
--- NOTE | 2021-03-08 08:57 | NUR ---
PT SITTING ON BSC THIS AM. PT HAS STEADY GAIT WITH TRANSFERS. PT STATED SHE HASN'T HAD A BM SINCE Feb. PT STATED IT IS NOT UNUSUAL FOR HER TO GO 6 DAYS WITHOUT A BM. SHE STATED SHE USES AN ENEMA AT HOME. PT STATED SHE DOES HAVE SOME CRAMPING TO ABD OF 2 ON 1-10 SCALE. PT HAS MIRALAX THIS AM, SENNA, AND ALSO GOT PT A SUPPOSITORY.
--- NOTE | 2021-03-08 09:03 | NUR ---
ADM IBUPROPHEN 600MG PO FOR CRAMPING PAIN TO ABD OF 2.
--- NOTE | 2021-03-08 10:30 | NUR ---
AFTER WALKING WITH THERAPY, PT IS NAUSEATED, PT HAS WET WASHRAG TO BACK OF NECK, GAVE PT ICE BAG FOR HER NECK. PT STATED SHE WILL WORK THROUGH THE NAUSEA, NO MEDS ORDERED FOR NAUSEA AT THIS TIME.
--- NOTE | 2021-03-08 18:07 | NUR ---
PT HAS HAD A GOOD DAY. GAVE PT FLEETS ENEMA, PT WANTS TO ADM TO SELF. PT ALSO HAS DULCOLAX ADM PER PT. PT HAS BEEN USING BSC TO VOID WITHOUT ANY ISSUES.
[2021-03-08 19:53] VITALS: BP 112/70
--- NOTE | 2021-03-08 23:27 | NUR ---
PT ASSESSMENT COMPLETED AND VSS. MEDS GIVEN ORDERED AND WELL TOLERATED. FALL PRECAUTIONS IN PLACE. MEDICATION GIVEN FOR BOWEL MOVEMENT. NONE SO FAR THIS EVENING. IBUPROFEN GIVEN FOR MENSTRUAL CRAMPS - HELPFUL. PT SLEEPING WELL. DENIES NEEDS. WILL CONTINUE TO MONITOR FREUQENTLY.
[2021-03-09 08:00] VITALS: BP 132/68
--- NOTE | 2021-03-09 09:02 | NUR ---
Chart review. Denny visited with her at bedside, she up in chair. A & o x 4, pleasant and able to make her needs known. Hx of MS with exacerbation. She employed here at [employer]. Lives at home with her spouse mindi [phone]. No steps at home. has 4ww, wheel chair. canes and shower bench and grab bars. Had oupt therapy here in the past. She requested she would like her medical records and has [place] paper work for Dr to fill out. DENNY passed on information to bedside nurse to assist with medical records. DENNY passed on to MD about her needs for [facility] paper work. Education on hh, anyone that take our insurance. Cm checked with [facility] and they take morena. Will cont. following as needed for dc needs.
--- NOTE | 2021-03-09 16:26 | NUR ---
Pt A & O x4. Pt Vs stable. Pt is room air. Pt is independent in to bedside commode. Pt uses wheelchair and walker with gait belt for mobility. Pt worked with PT/OT this shift. Pt received medications as ordered. pt is able to make needs known.
[2021-03-09 19:39] VITALS: BP 124/70
--- NOTE | 2021-03-10 00:29 | NUR ---
PT ASSESSMENT COMPLETED AND VSS. MEDS GIVEN ORDERED AND WELL TOLERATED. PT CONSTIPATION RESOLVED AFTER HAVING 2 LARGE BOWEL MOVEMENTS DURING THE DAY. PT DID REFUSE ALL BOWEL MEDS THIS EVENING BECAUSE NOW SHE IS HAVING SOME LOOSE STOOLS. PT VERY TIRED THIS EVENING AND SLEEPING WELL. PT DENIES NEEDS. WILL CONTINUE TO MONITOR FREUQENTLY.
[2021-03-10 08:00] VITALS: BP 145/72
--- NOTE | 2021-03-10 10:27 | NUR ---
PT FINISHED WORKING WITH THERAPY AND CALLING FOR MEDS. PT STATED SHE DIDN'T NEED LAXATIVES AT THIS TIME DUE TO LARGE BM LAST NIGHT. PT HAS BEEN COMPLAINING OF INCON RECENTLY. PT USES BSC AND ALSO CAN STRAIGHT CATH SELF. PT HAS EYE PATCH TO LEFT EYE. PT DENIES ANY PAIN THIS AM. PT USING HOME WALKER TO AMBULATE IN ROOM WITH STAND-BY ASSIST.
--- NOTE | 2021-03-10 12:31 | NUR ---
Team meeting, recommendation: PO ABX for UTI. Having a lot of incontent of urine with any movement and even when self Cath herself. Urology consulted. Still requiring the use of eye patch. she is having increased numbness in both legs. Has 2 steps to enter the home and then everything is on the main level at home. consult neurology, from [facility]. Dc 03/13 or 03/17 with kerline [facility]mundo ( pt, nursing) vs outpt therapy at [facility]. No driving till cleared with her PCP.
--- NOTE | 2021-03-10 14:04 | NUR ---
CALLING DR. DUKE OFFICE TO NOTIFIY OF LOOKING AT MRI OF HEAD AND LUMBAR TAKEN 03/05 AND 03/06.
--- NOTE | 2021-03-10 14:34 | NUR ---
DR. DUKE OFFICE CALLED BACK AND WILL HAVE THEIR RADIOLOGY TO UPLOAD THE CLOUD ON THEIR SIDE AND WILL LET BECKY KNOW WHEN SEES MRI AND ANY ISSUES.
[2021-03-10 19:13] VITALS: BP 138/79
--- NOTE | 2021-03-10 21:22 | NUR ---
ASSUMED CARE OF PT AT 1915. PT IS A&OX4. IS ON ROOM AIR. DENIES PAIN. IS STABLE. IS UP MOD I FROM BED TO BSC & CHAIR; OTHERWISE ALEXANDER ASSIST WITH SHADE WILLIAM. FALL PRECAUTIONS & HOURLY ROUNDING CONTINUED THIS SHIFT. PT REPORTED URINATING Q45 MINS. GOAL IS TO SLEEP WELL TONIGHT. REQUESTED TO TAKE MEDICATIONS EARLY SO THAT SHE CAN SLEEP. PT IS CURRENTLY ASLEEP. CALL LIGHT WITHIN REACH. LABS & VITALS REVIEWED. PT HAS ORDERS TO STRAIGHT CATH SELF NEEDED DOES SO AT HOME. UA STILL NEEDED. WILL COLLECT THIS SHIFT, IF POSSIBLE. CALL LIGHT WITHIN REACH. WILL CONTINUE TO MONITOR.
[2021-03-11 05:30] LABS: URINE BILIRUBIN NEGATIVE (Negative); URINE BLOOD NEGATIVE (Negative); URINE CLARITY CLEAR; URINE COLOR YELLOW; URINE GLUCOSE-RANDOM* NEGATIVE (Negative); URINE KETONES NEGATIVE (Negative); URINE LEUKOCYTES-REFLEX NEGATIVE (Negative); URINE NITRITE-REFLEX NEGATIVE (Negative); URINE PROTEIN (DIPSTICK) NEGATIVE (Negative); URINE UROBILINOGEN 0.2 E.U./dl (0.2-1.0)
[2021-03-11 07:40] VITALS: BP 179/81
--- NOTE | 2021-03-11 09:50 | NUR ---
ASSUMED CARE AT 0700. PATIENT IS ALERT AND ORIENTED X4. PATIENT CORDON'S, BUT PATIENT HAS LOWER EXTREMITY WEAKNESS, R/T HER M.S. PATIENT CONTINUES ON PO ABT WITHOUT ADVERSE AFFECTS. PATIENT IS MOD/I IN ROOM TO C R/T HER NEUROGENIC BLADDER. UP IN THE CHAIR FOR MEALS. FALL AND SAFETY PROTOCOLS IN PLACE. DENIES PAIN AT THIS TIME. CONTINUES TO PROGRESS SLOWLY TOWARDS D/C GOALS. WILL CONTINUE TO MONITER.
--- NOTE | 2021-03-11 15:59 | PLAN ---
[facility] [place] [address] REHAB UNIT PLAN OF CARE Name: MOHIT MOURA Room #: 509-P ADM IN M.R.#: [id number] Admission: 03/06/21 Attend Phys: Evgeny Bae MD Discharge: Date of : 68 Report #: [id number] THIS REPORT FOR: cc: Aldair Wilson MD, Neal A. MD Smithson,Evgeny Thompson MD ~ DATE OF SERVICE: 03/09/2021 PROGRESS NOTE/OVERALL PLAN OF CARE HISTORY OF PRESENT ILLNESS: The patient was seen back today in followup. She is in no distress. She looks improved when I saw her on acute prior to coming up to rehabilitation. She is pleasant and alert. Temperature 36.6, pulse 92, respirations 20, blood pressure 112/70. She has better extraocular movements with more conjugate gaze, especially as she looks past midline to the left. She notes her double vision is overall better. No focal calf swelling. Functionally, she has been working in therapies. Transfers are modified independent with gait 200 feet contact guard with a front-wheeled walker. In occupational therapy, lower body dressing is setup with upper body dressing, set up. She notes she has been cathing herself, which she has been doing for quite a while premorbidly. ASSESSMENT: 1. Relapsed multiple sclerosis. 2. Double vision with internuclear ophthalmoplegia. 3. Functional mobility and ADL deficits. 4. Neurogenic bladder. 5. Urinary tract infection. 6. Hypertension. PLAN: The overall plan of care is based on the pre-admission screen and information garnered from therapy assessments. 1. Estimated length of stay is probably around 7 days. 2. Medical prognosis is reasonably good. 3. Anticipated interventions includes the interdisciplinary acute inpatient rehabilitation program. 4. Anticipated functional outcomes would be for her to become modified independent again at the walker level as she was premorbidly with mobility and ADLs. 5. Discharge destination would be back home where she lives with her spouse. No stairs. 6. Expected therapy by discipline includes PT and OT 1-1/2 hours per day each 5 days a week throughout the duration of the acute inpatient rehabilitation stay. Addendum: The patient's prognosis for significant practical improvement within a reasonable period of time appears good. Given the patient's complex medical [facility] [address] [place] [address] REHAB UNIT PLAN OF CARE Name: MOHIT MOURA Room #: 509-P [facility] IN M.R.#: [id number] Admission: 03/06/21 Attend Phys: Evgeny Bae MD Discharge: Date of : 68 Report #: [id number] condition and risk of further medical complications, rehabilitation services could not be safely provided at the lower level of care such as a care home facility. <ELECTRONICALLY SIGNED> By: Evgeny Bae MD 03/11/21 1559 [id number] Evgeny Bae MD /nt
[2021-03-11 19:39] VITALS: BP 121/78
--- NOTE | 2021-03-12 02:50 | NUR ---
PATIENT IS ALERT AND ORIENTED. SHE IS A MODERATE ASSIT WITH CARE. LUNGS ARE CLEAR BS ACTIVE X4 QUADS. SHE DENIES ANY DISCOMFORT AND SHE TOOK HER MEDS WHOLE. BS ACTIVE [id number]. SHE AMBULATES WITH A WWALKER TO BATHROOM. SHE HAS A GARCIA INSITU WITH PROPER DRAINAGE OF JAM URINE.SHE IS ON ORAL ANTI-BIOTICS.. Q HOURLY ROUNDS ARE ONGOING.BED IS LOCKED,AND LOW, CONTINUE CARE AND MONITOR.
[2021-03-12 08:00] VITALS: BP 118/86
--- NOTE | 2021-03-12 10:47 | NUR ---
ASSUMED CARE AT 0700. PATIENT IS ALERT AND ORIENTED X4. PATIENT CORDON'S, EMPLOYEE REPRESENTATIVE ARE EQUAL. LUNGS ARE CLEAR . ABD IS SOFT WITH BSX4. REFUSED SENNA. PATIENT HAS GARCIA TO DD, DRAINING JAM COLORED URINE. UP IN THE CHAIR FOR BREAKFAST. PATIENT IS UP WITH GAIT BELT AND WALKER AND ASSIST OF 1 STAFF. PATIENT CAN BE UP MOD/I TO BSC FOR BM'S. FALL AND SAFETY PROTOCOLS IN PLACE. DENIES PAIN AT THIS TIME. CONTINUES TO PROGRESS TOWARDS D/C GOALS. WILL CONTINUE TO MONITER.
[2021-03-12 19:53] VITALS: BP 135/81
--- NOTE | 2021-03-12 23:51 | NUR ---
ASSUMED CARE OF PT AT 1915. PT IS A&OX4. IS ON ROOM AIR. DENIES PAIN. IS STABLE. IS ABLE TO TURN SELF IN BED. IS UP MOD I TO BSC & CHAIR. CALLS FOR ASSIST INTO THE BATHROOM. IS UP WITH STANDBY ASSIST, NATALIIA, WALKER. FALL PRECAUTIONS & HOURLY ROUNDING CONTINUED THIS SHIFT. LABS & VITALS REVIEWED. GARCIA INTACT. WILL CONTINUE TO MONITOR. PT REQUEST TO TAKE NIGHT MEDS BEFORE 1999. STATES, "I GET IN BED BY 1900 & WAKE UP AROUND 0300/0400. IF YOU COME IN AFTER THAT & I AM SLEEPING, DO NOT WAKE ME UP FOR MEDICATIONS". CALL LIGHT WITHIN REACH. WILL CONTINUE TO MONITOR.
[2021-03-13 08:00] VITALS: BP 123/76
--- NOTE | 2021-03-13 12:22 | NUR ---
Moshe visited with darian Davila dc on 03/17/21, she would like to start with [facility] and then transition to outpt therapy when her vision improves. Will cont. following as needed.
--- NOTE | 2021-03-13 16:58 | NUR ---
I have reviewed the documentation by BENITO HDZ from 03/11/21 to 03/13/21 and I concur with it. TIMMY HARTLEY
[2021-03-13 19:45] VITALS: BP 115/70
--- NOTE | 2021-03-13 23:05 | NUR ---
PT ALERT AND ORIENTED X 4. GARCIA PATENT WITH CLEAR YELLOW URINE. PT TAKES MEDS WITH WATER WITHOUT DIFFICULTY. HS MEDS GIVEN EARLY PER PT REQUEST. PT DENIES PAIN OR DISCOMFORT. PT MODIFIED INDEPENDENT TO BSC. PT APPEARS TO BE SLEEPING ON HOURLY ROUNDS.
[2021-03-14 06:06] LABS: BASOPHILS 0.3 % (0.0-2.0); EOSINOPHILS 2.4 % (0.0-3.0); HEMATOCRIT 37.2 % (37.0-47.0); LYMPHOCYTES 16.6 % (24.0-44.0); MCHC 32.2 g/dL (28.0-37.0); MCV 87.2 fL (80.0-100.0); MONOCYTES 8.6 % (1.0-8.0); PLATELET COUNT 246 thou/uL (150-400); POLYS 72.1 % (36.0-66.0); RBC 4.27 mil/uL (4.20-5.00); RDW 14.6 % (10.5-14.5); WBC 8.4 thou/uL (4.0-11.0)
[2021-03-14 06:16] LABS: CALCIUM 8.9 mg/dL (8.5-10.1); CREATININE 0.9 mg/dL (0.6-1.0); MAGNESIUM 2.2 mg/dL (1.8-2.4); POTASSIUM 4.3 mmol/L (3.5-5.1)
[2021-03-14 07:15] VITALS: BP 138/71
--- NOTE | 2021-03-14 08:50 | NUR ---
PT UP IN ROOM AND SITTING ON WALKER SEAT. PT PLEASANT THIS AM. PT DENIES ANY PAIN. PT LUNGS CLEAR AND HAS BOWEL SOUNDS. PT REFUSED LAXATIVES THIS AM, DID TAKE MIRALAX. PT TOOK MEDS WHOLE WITH THIN WATER. PT LBM 03/12. PT HAS GARCIA AT THIS TIME DUE TO RETENTION AND INCREASED STRAIGHT CATHS.
[2021-03-14 19:40] VITALS: BP 131/66
--- NOTE | 2021-03-14 23:09 | NUR ---
PT ALERT AND ORIENTED X 4. MODIFIED INDEPENDENT IN ROOM TO BSC AND CHAIR. GARCIA PATENT DRAINING CLEAR YELLOW URINE. PT TAKES MEDS WITH WATER WITHOUT DIFFICULTY. HS MEDS GIVEN EARLY PER PT REQUEST. PT DENIES PAIN OR DISCOMFORT. NO BM SINCE 03/12. SENNA AND MIRALAX GIVEN AT HS. PT APPEARS TO BE SLEEPING ON HOURLY ROUNDS.
[2021-03-15 07:15] VITALS: BP 132/71
--- NOTE | 2021-03-15 08:38 | NUR ---
PT SITTING ON SIDE OF BED. PT HAS EYE PATCH FOR LEFT EYE. PT UP WITH PERSONAL WALKER TO BATHROOM. PT HAS LEG BAG THAT SHE MAINTAINS PER SELF. PT TOLERATING THIN LIQUIDS, AND MEDS WHOLE. PT STILL STATES SHE HAS SOME NUMBNESS TO FEET AND RT LE. PT HAS EYE PATCH FOR DOUBLE VISION TO LEFT EYE. PT DOES STILL WORK AND ASKED ABOUT WHEN SHE WILL RETURN TO WORK, SHE STATED THAT SHE IS UNABLE TO DRIVE STILL AND SHE DIDN'T KNOW. PT LUNGS CLEAR. PT BOWEL SOUNDS HYPOACTIVE. PT DENIES ANY N/V. PT REFUSED SENNA THIS AM, DID TAKE MIRALAX IN ORANGE JUICE.
--- NOTE | 2021-03-15 13:35 | NUR ---
PT SITTING UP IN CHAIR, PT COMPLAINED OF BLADDER SPASMS SINCE 1156. PT STATED SHE TRIED TO ADJUST THE GARCIA TUBING. REC. PT LAY DOWN AND CHANGE POSISITON. ADM IBUPROPHEN 600MG FOR DISCOMFORT WITH GARCIA TUBING.
[2021-03-15 19:43] VITALS: BP 105/55
--- NOTE | 2021-03-16 03:00 | NUR ---
PT ASSESSMENT COMPLETED AND VSS. MEDS GIVEN ORDERED AND WELL TOLERATED. FALL PRECAUTIONS IN PLACE. GARCIA IN PLACE. C/O BLADDER SPASMS. PT DID NOT WANT MEDICATION ORDERED FOR THEM SINCE THE GARCIA WOULD BE COMING OUT SOON. SLEEPING WELL. STEADY WHEN UP TO THE BSC. WILL CONTINUE TO MONIITOR
[2021-03-16] MEDS ORDERED: AMITIZA 24 MCG24 MCG PO (10:34)
[2021-03-16] MEDS ORDERED: NEURONTIN300 MG PO (10:34)
[2021-03-16] MEDS ORDERED: VITAMIN B-12500 MCG PO (10:34)
[2021-03-16] MEDS ORDERED: MIRALAX119 GM PO (10:34)
[2021-03-16 10:42] VITALS: BP 116/66
--- NOTE | 2021-03-16 12:36 | NUR ---
PATIENT CARE ASSUMED AT 0700 03/16/21, PATIENT SITTING ON THE BED, ALERT AND ORIENTED X3, PATIENT TOOK MEDICATION WHOLE WITHOUT ANY PROBLEM, PATIENT IS ABLE TO VERBALIZE NEEDS, DENIES PAIN, BREATH SOUND CLEAR, BOWEL SOUND ACTIVE WITH SOFT AND ROUNDED ABDOMEN, REG HR, SKIN INTACT, NO EDEMA NOTED, GARCIA IN PLACE, PATIENT IS CALM PLEASANT AND COOPERATIVE WITH CARE.
[2021-03-16 19:32] VITALS: BP 131/82
--- NOTE | 2021-03-16 23:02 | NUR ---
PT ASSESSMENT COMPLETED AND VSS. MEDS GIVEN ORDERED AND WELL TOLERATED. FALL PRECAUTIONS IN PLACE. PT WAS HAVING A LOT OF PAIN WITH HER GARCIA CATH. PT STATED THAT UROLOGY WANTED IT REMOVED THE DAY FOR D/C. CONTACTED WENDIE JIN. PER ORDER D/C GARCIA. PT STATES THAT SHE IS ALREADY FEELING BETTER. UP TO THE BSC - STEADY. PT STATED THAT SHE HAD A GOOD BOWEL MOVEMENT DURING THE DAY. SHE IS FEELING READY TO GO HOME. SLEEPING WELL. WILL CONTINUE TO MONITOR FREUQENTLY.
[2021-03-17 08:00] VITALS: BP 122/74
[2021-03-17 10:52] VITALS: BP 122/74
--- NOTE | 2021-03-17 15:54 | NUR ---
faxed dc home health orders to [facility], fax # [phone], phone # [phone].
--- NOTE | 2021-03-17 16:48 | NUR ---
I have reviewed the documentation by BOBO HDZ from 03/16/21 to 03/17/21 and I concur with it. VIKASH MOURA
== END 2021-03-17 13:00 | disposition home health service (06) | DRG 59 ==
PROVIDERS: Nurse Practitioner; Nurse Practitioner Family; ADMIT Physical Medicine & Rehabilitation; ATTEND Physical Medicine & Rehabilitation
PROC: 0T9B70Z Drainage of Bladder with Drainage Device, Via Natural or Artificial Opening (ICD-10-PCS; principal; 2021-03-11)
DX: G35 Multiple sclerosis (principal); N39.0 Urinary tract infection, site not specified; I10 Essential (primary) hypertension; N31.9 Neuromuscular dysfunction of bladder, unspecified; R53.81 Other malaise; F32.9 Major depressive disorder, single episode, unspecified; K21.9 Gastro-esophageal reflux disease without esophagitis; H51.23 Internuclear ophthalmoplegia, bilateral; K59.00 Constipation, unspecified; N32.89 Other specified disorders of bladder; Z88.2 Allergy status to sulfonamides; Z79.899 Other long term (current) drug therapy
CPT/HCPCS: 10112

== ENCOUNTER → 2021-04-27 | Outpatient (CLI) | payer OTHER ==
[~2021-04-27] MED LIST changes: +VITAMIN B-12500 MCG PO
[2021-04-28 17:08] LABS: URINE BILIRUBIN NEGATIVE (Negative); URINE BLOOD TRACE (Negative); URINE CLARITY SL CLOUDY; URINE COLOR YELLOW; URINE GLUCOSE-RANDOM* NEGATIVE (Negative); URINE KETONES NEGATIVE (Negative); URINE NITRITE-REFLEX NEGATIVE (Negative); URINE PROTEIN (DIPSTICK) NEGATIVE (Negative); URINE UROBILINOGEN 0.2 E.U./dl (0.2-1.0)
[2021-04-28 17:14] LABS: URINE LEUKOCYTES-REFLEX 3+ (Negative)
[2021-04-28 17:51] LABS: CASTS None Seen /LPF (None Seen); SQUAMOUS 0-3 Few /LPF (0-3)
[2021-04-28 17:52] LABS: BACTERIA-REFLEX >30 Many /HPF (None Seen); CRYSTALS None Seen /LPF (None Seen); URINE RBC 1-2 Rare /HPF (NONE SEEN); URINE WBC-REFLEX >25 Many /HPF (0-5); WBC CLUMPS Few (None Seen)
== END ==
LOC: LAB 14:50
PROVIDERS: ATTEND Urology
DX: N30.20 Other chronic cystitis without hematuria (principal)

== ENCOUNTER → 2021-05-06 | Outpatient (CLI) | payer OTHER | LOC: LAB 16:46 | PROVIDERS: ATTEND Urology | DX: N30.20 Other chronic cystitis without hematuria (principal) ==

== ENCOUNTER → 2021-06-01 | Outpatient (CLI) | payer OTHER ==
[2021-06-01 12:49] LABS: ABSOLUTE NEUTROPHILS 4.8 thou/uL (1.4-8.2); BASOPHILS 0.5 % (0.0-2.0); EOSINOPHILS 1.9 % (0.0-3.0); HEMATOCRIT 38.5 % (37.0-47.0); HEMOGLOBIN 12.5 gm/dL (12.0-15.0); LYMPHOCYTES 19.1 % (24.0-44.0); MCHC 32.4 g/dL (28.0-37.0); MCV 86.5 fL (80.0-100.0); MONOCYTES 6.6 % (1.0-8.0); PLATELET COUNT 264 thou/uL (150-400); POLYS 71.9 % (36.0-66.0); RBC 4.45 mil/uL (4.20-5.00); WBC 6.7 thou/uL (4.0-11.0)
[2021-06-01 12:54] LABS: URINE BILIRUBIN NEGATIVE (Negative); URINE BLOOD 2+ (Negative); URINE CLARITY CLEAR; URINE COLOR YELLOW; URINE GLUCOSE-RANDOM* NEGATIVE (Negative); URINE KETONES NEGATIVE (Negative); URINE LEUKOCYTES-REFLEX 1+ (Negative); URINE NITRITE-REFLEX NEGATIVE (Negative); URINE PROTEIN (DIPSTICK) 2+ (Negative); URINE SPECIFIC GRAVITY >= 1.030 (1.005-1.035); URINE UROBILINOGEN 0.2 E.U./dl (0.2-1.0)
[2021-06-01 13:04] LABS: SQUAMOUS 4-10 Moderate /LPF (0-3)
[2021-06-01 13:05] LABS: ALBUMIN 3.5 g/dL (3.4-5.0); BACTERIA-REFLEX 1-9 Few /HPF (None Seen); CALCIUM 9.4 mg/dL (8.5-10.1); CASTS None Seen /LPF (None Seen); CRYSTALS None Seen /LPF (None Seen); POTASSIUM 4.6 mmol/L (3.5-5.1); TOTAL BILIRUBIN 0.4 mg/dL (0.2-1.0); URINE RBC 3-10 Few /HPF (NONE SEEN); URINE WBC-REFLEX >25 Many /HPF (0-5)
== END ==
LOC: LAB 11:50
PROVIDERS: ATTEND Urology
DX: N39.0 Urinary tract infection, site not specified (principal)

== ENCOUNTER → 2021-06-12 | Outpatient (CLI) | payer OTHER | LOC: LAB 12:04 | PROVIDERS: ATTEND Urology | DX: N30.20 Other chronic cystitis without hematuria (principal) ==

== ENCOUNTER → 2021-06-16 | Outpatient (CLI) | payer OTHER ==
[2021-06-16 14:46] LABS: URINE BILIRUBIN NEGATIVE (Negative); URINE BLOOD 2+ (Negative); URINE CLARITY TURBID; URINE COLOR YELLOW; URINE GLUCOSE-RANDOM* NEGATIVE (Negative); URINE KETONES NEGATIVE (Negative); URINE LEUKOCYTES-REFLEX 3+ (Negative); URINE NITRITE-REFLEX NEGATIVE (Negative); URINE PROTEIN (DIPSTICK) 1+ (Negative); URINE SPECIFIC GRAVITY >= 1.030 (1.005-1.035); URINE UROBILINOGEN 0.2 E.U./dl (0.2-1.0)
[2021-06-16 14:57] LABS: SQUAMOUS >10 Many /LPF (0-3); URINE WBC-REFLEX >25 Many /HPF (0-5)
[2021-06-16 14:58] LABS: BACTERIA-REFLEX >30 Many /HPF (None Seen)
[2021-06-16 14:59] LABS: CASTS None Seen /LPF (None Seen); CRYSTALS None Seen /LPF (None Seen); URINE RBC 3-10 Few /HPF (NONE SEEN)
== END ==
LOC: CAT 08:53
PROVIDERS: ATTEND Specialist
DX: N30.90 Cystitis, unspecified without hematuria (principal); M16.0 Bilateral primary osteoarthritis of hip; M41.86 Other forms of scoliosis, lumbar region; M48.04 Spinal stenosis, thoracic region